=== PATIENT | male | born 1980 | race Caucasian/White ===

== ENCOUNTER 2022-03-17 07:15 | Outpatient (CLI) | payer OTHER ==
[2022-03-17 15:26] LABS: CHOL/HDL RATIO 3.7 (<5.0); CHOLESTEROL 220 mg/dL; HDL CHOLESTEROL 60 mg/dL; LDL CHOLESTEROL,CALCULATED 148 mg/dL; LDL/HDL RATIO 2.5 (<3.6); TRIGLYCERIDES 61 mg/dL; VLDL CHOLESTEROL 12 mg/dL
[2022-03-18 05:10] LABS: HCV AB <0.1 s/co ratio (0.0-0.9)
== END 2022-03-17 07:16 | disposition home or self-care (01) ==
LOC: LAB.S 07:15
PROVIDERS: ATTEND Internal Medicine
DX: E78.5 Hyperlipidemia, unspecified (principal); Z11.59 Encounter for screening for other viral diseases
CPT/HCPCS: 36415; 80061; 83721; 86803

== ENCOUNTER 2023-02-02 08:00 | Outpatient (CLI) | payer OTHER | END 2023-02-02 23:59 | disposition home or self-care (01) | LOC: LAB.S 08:00 | PROVIDERS: ATTEND Physician Assistant Medical | DX: J02.9 Acute pharyngitis, unspecified (principal) | CPT/HCPCS: 87070 ==